=== PATIENT | female | born 1985 | race American Indian/Alaskan Native ===

== ENCOUNTER 2017-04-28 00:40 | Outpatient (CLI) | payer BC ==
[2017-04-28 01:03] VITALS: BP 111/66
[2017-04-28] MEDS ORDERED: DIFLUCAN PO ONE (03:00)
[2017-04-28] MEDS ORDERED: TUMS PO ONE (03:16)
--- NOTE | 2017-04-28 11:35 | Ultrasound Report ---
ULTRASOUND OB LIMITED History: Spontaneous rupture of membranes Technique: Transabdominal ultrasound with Doppler interrogation. Gestation: Single Position: Cephalic Amniotic Fluid: Normal LOLITA = 7.4 cm Placenta: Fundal Placental Grade: 1 Heart Rate: 138 BPM
== END 2017-04-28 04:00 | disposition home or self-care (01) ==
LOC: TRG 00:40
PROVIDERS: ATTEND Obstetrics & Gynecology
DX: O42.92 Full-term premature rupture of membranes, unspecified as to length of time between rupture and onset of labor (principal); O47.1 False labor at or after 37 completed weeks of gestation; Z3A.38 38 weeks gestation of pregnancy
CPT/HCPCS: 59025; 76815